=== PATIENT | male | born 1945 | race Caucasian/White ===

== ENCOUNTER 2020-04-01 18:34 | Emergency (ER) | payer MEDICARE ==
[2020-04-01] MEDS ORDERED: Lidocaine 1% w/Epinephrine 1:100K 20 ML VIAL ONE (18:58)
[2020-04-01] MEDS ORDERED: Clindamycin/D5W 900 mg/50 ml Premix Bag ONE (19:24)
== END 2020-04-01 20:33 | disposition home or self-care (01) ==
LOC: ERS 18:34
DX: N49.2 Inflammatory disorders of scrotum (principal); E78.5 Hyperlipidemia, unspecified; I10 Essential (primary) hypertension
CPT/HCPCS: 55100; 96365; J3490

== ENCOUNTER 2020-04-02 18:24 | Emergency (ER) | payer MEDICARE ==
[~2020-04-02 18:24] MED LIST: Iopamidol-370 76% 500 ML 1 ML ONE
[2020-04-02 19:20] LABS: #Basophils 0.1 thou/uL (0.0-0.2); #Eosinphils 0.1 thou/uL (0.0-0.7); #Lymphocytes 0.7 thou/uL (1.20-3.40); #Monocytes 0.3 thou/uL (0.11-0.59); #Neutrophils 9.1 thou/uL (1.40-6.50); %Basophils 1.2 % (0.0-1.0); %Eosinophils 1.2 % (0.0-10.0); %Lymphocytes 6.7 % (21.0-51.0); %Monocytes 3.2 % (0.0-10.0); %Neutrophils 87.7 % (42.0-75.0); Hemoglobin 21.1 g/dL (14.0-18.0); Mean Corpuscular HGB CONC 32.2 g/dL (32.0-36.0); Mean Corpuscular Hemoglobin 28.7 pg (27.0-31.0); Mean Corpuscular Volume 89.2 fL (78.0-98.0); Mean Platelet Volume 9.6 fL (7.4-10.4); Platelet Count 273 thou/uL (130-400); RBC Distribution Width 16.3 % (11.5-14.5); Red Blood Cell (RBC) Count 7.36 mill/uL (4.70-6.10); White Blood Cell (WBC) Count 10.4 thou/uL (4.8-10.8)
[2020-04-02 19:32] LABS: ALT (SGPT) 16 U/L (8-55); AST (SGOT) 22 U/L (5-34); Albumin 3.9 g/dL (3.4-4.8); Alkaline Phosphatase 97 U/L (40-110); Anion Gap 15 mmol/L (10-20); BUN (Urea Nitrogen) 16 mg/dL (8.4-25.7); Bilirubin, Total 1.2 mg/dL (0.2-1.2); Calc. Creatinine Clearance 0 mL/min (70-130); Calcium 8.9 mg/dL (7.8-10.44); Carbon Dioxide 22 mmol/L (23-31); Chloride 103 mmol/L (98-107); Estimated GFR-MDRD 61; Globulin 3.5 g/dL (2.4-3.5); Glucose 106 mg/dL (83-110); Potassium 4.6 mmol/L (3.5-5.1); Protein, Total 7.4 g/dL (5.8-8.1); Sodium 135 mmol/L (136-145)
--- NOTE | 2020-04-02 21:19 | CT ---
CT PELVIS WITH IV CONTRAST: Date: 04-02-2020 Provided Clinical History: Perineal abscess status post drainage. FINDINGS: The visualized intrapelvic contents demonstrate no acute abnormality. Vascular calcifications are see n. There is a small region of apparent skin thickening and soft tissue gas in the posterior scrotum benito on. There is no evidence for a fluid collection to suggest abscess. There is preservation of the isch iorectal fossa fat. The osseous structures demonstrate no concerning lytic or blastic lesions. IMPRESSION: No evidence for residual drainable fluid collection. POS: [facility]
== END 2020-04-02 21:02 | disposition home or self-care (01) ==
LOC: ERS 18:24
DX: L02.215 Cutaneous abscess of perineum (principal); L03.315 Cellulitis of perineum; E78.5 Hyperlipidemia, unspecified; I10 Essential (primary) hypertension; F17.210 Nicotine dependence, cigarettes, uncomplicated; Z79.899 Other long term (current) drug therapy; Z79.82 Long term (current) use of aspirin
CPT/HCPCS: 72193; 80053; 83605; 85025; 87040; Q9967

== ENCOUNTER 2020-04-25 08:25 | Outpatient (CLI) | payer MEDICARE ==
--- NOTE | 2020-04-25 09:19 | ULT ---
ULTRASOUND RETROPERITONEUM LIMITED: (ABDOMINAL AORTA) DATE: 04/25/2020 HISTORY: 74-year-old male screening study for abdominal aortic aneurysm. History of smoking. FINDINGS: There is diffuse atherosclerosis and mild ectasia of the entire abdominal aorta, with caliber of appr oximately 2 - 2.5 cm throughout. There is no aneurysm (defined as 3 cm or larger). IMPRESSION: 1. Atherosclerosis of abdominal aorta. 2. No abdominal aortic aneurysm.
--- NOTE | 2020-04-25 09:36 | CT ---
LOW DOSE CT SCAN OF CHEST WITHOUT IV CONTRAST FOR LUNG CANCER SCREENING: Date: 04/25/2020 HISTORY: Smoker for 60 years , quit 12 days ago; nicotine abuse FINDINGS: No pulmonary nodules are seen. No pneumothoraces, focal areas of consolidation, pleural or pericardia l effusions are identified. There are vascular calcifications without evidence of aneurysmal dilatati on of the thoracic aorta. There are degenerative changes of the spine. IMPRESSION: Lung-RADS category 1 - Negative. RECOMMENDATION: 12 month follow-up LDCT is recommended. POS: [facility]
== END 2020-04-25 08:26 | disposition home or self-care (01) ==
LOC: BICCT 08:25
PROVIDERS: ATTEND Family Medicine
DX: Z13.6 Encounter for screening for cardiovascular disorders (principal); Z12.2 Encounter for screening for malignant neoplasm of respiratory organs; F17.210 Nicotine dependence, cigarettes, uncomplicated; I70.0 Atherosclerosis of aorta
CPT/HCPCS: 76775; G0297

== ENCOUNTER 2021-09-05 08:00 | Outpatient (CLI) | payer MEDICARE | END 2021-09-05 08:01 | disposition home or self-care (01) | LOC: BICCT 08:00 | PROVIDERS: ATTEND Family Medicine | DX: Z12.2 Encounter for screening for malignant neoplasm of respiratory organs (principal) | CPT/HCPCS: 71271 ==

== ENCOUNTER 2025-06-10 08:37 | Outpatient (CLI) | payer MEDICARE | END 2025-06-10 08:38 | disposition home or self-care (01) | LOC: CT 08:37 | PROVIDERS: ATTEND Internal Medicine Hematology & Oncology | DX: D45 Polycythemia vera (principal); F17.211 Nicotine dependence, cigarettes, in remission; R91.8 Other nonspecific abnormal finding of lung field | CPT/HCPCS: 71250 ==